=== PATIENT | female | born 1965 | race Caucasian/White ===

== ENCOUNTER 2016-10-25 07:52 | Day surgery (SDC) | payer BC ==
[2016-10-23 11:50] VITALS: BMI 46.7
[2016-10-25 08:25] VITALS: RESP 16; TEMP 98.1
[2016-10-25] MEDS: LACTATED RINGERS 1,000 ML IV SCH (08:37)
[2016-10-25] MEDS: LIDOCAINE 1% 20 ML VIAL (10MG/ML) FOR IV START INTRADERMA PRN (08:37)
[2016-10-25] MEDS ORDERED: PROPOFOL 10 MG/ML 20 ML VIAL IV ONE (08:44)
[2016-10-25] MEDS ORDERED: LIDOCAINE 1% INJ 10MG/ML (20 ML MDV) ONE (08:44)
--- NOTE | 2016-10-25 09:13 | P.PCN ---
Date of Procedure: 10/25/16 Procedure(s) Performed: Procedure: Colonoscopy and biopsy. Preoperative diagnosis: Change in bowel habits. Postoperative diagnosis: 1. Sigmoid diverticulosis with no evidence of acute diverticulitis or strictures. 2. Diminutive polyp, proximal sigmoid, biopsied but no large polyps or cancer. Preparation: HalfLytely prep. Sedation: Was provided by anesthesia. Brief clinical history: The patient is a 51-year-old female who is referred for this evaluation because of recent change in bowel habits and character of her stools. She is describing her bowel movement to be every other day instead of daily, as it used to be, and are more mushy. No bleeding. She said that she has started recently a dietary supplement. At her age and since she had no prior colonoscopy she was referred for this evaluation. No family history of colon cancer. Procedure: With the patient on her left lateral decubitus position and after informed consent and adequate sedation, the perianal area was inspected and it did not show any fissures or fistulas. There were no masses felt on digital rectal examination. The Olympus CFQ 160L video colonoscope was then inserted in the rectum in the usual fashion and advanced to the cecum. The mucosa appeared healthy. There were multiple diverticular orifices seen scattered in the sigmoid but I saw no evidence of acute diverticulitis or strictures. There was a diminutive polyp in the proximal sigmoid which I biopsied but there were no large polyps or cancer. I retroflexed endoscope in the rectum before the endoscope was withdrawn. The patient tolerated the procedure well. Plan: The patient was reassured. Discussed dietary measures. Further plans can be made based on her course and biopsy results. I anticipate repeating this colonoscopy in 5 years. She will follow-up with you as planned.
[2016-10-25 09:56] VITALS: BP 137/78; PULSE 60
== END 2016-10-25 10:15 | disposition home or self-care (01) ==
LOC: ORWHC2ENDO 07:52
DX: K63.5 Polyp of colon (principal); K57.30 Diverticulosis of large intestine without perforation or abscess without bleeding; I10 Essential (primary) hypertension; E78.5 Hyperlipidemia, unspecified; Z88.0 Allergy status to penicillin; Z88.1 Allergy status to other antibiotic agents; Z79.82 Long term (current) use of aspirin; Z79.899 Other long term (current) drug therapy; Z87.891 Personal history of nicotine dependence
CPT/HCPCS: 81025; 88305; 45380; J2001; J2704; 99153

== ENCOUNTER → 2016-11-09 | Outpatient (CLI) | payer BC ==
--- NOTE | 2016-11-09 14:19 | MM ---
Reason for exam: screening (asymptomatic). Last mammogram was performed 2 years and 7 months ago. History: Family history of breast cancer in paternal grandmother. Physical Findings: A clinical breast exam by your physician is recommended on an annual basis and results should be correlated with mammographic findings. MG Screening Mammo w CAD Bilateral CC and MLO view(s) were taken. Prior study comparison: April 14, 2014, left breast MG work up mamm w CAD LT. April 12, 2014, bilateral MG screening mammo w CAD. The breast tissue is heterogeneously dense. This may lower the sensitivity of mammography. There is no discrete abnormality. ASSESSMENT: Negative, BI-RAD 1 RECOMMENDATION: Routine screening mammogram of both breasts in 1 year.
== END | disposition home or self-care (01) ==
LOC: RADMAMWWP 10:11
PROVIDERS: ATTEND Internal Medicine Geriatric Medicine
DX: Z12.31 Encounter for screening mammogram for malignant neoplasm of breast (principal)

== ENCOUNTER → 2017-04-01 | Outpatient (CLI) | payer BC ==
[2017-04-01 16:21] LABS: Non-African American GFR(MDRD) >60 (>60 ml/min/1.73 sqM)
== END | disposition home or self-care (01) ==
LOC: LABWHC1 15:51
PROVIDERS: ATTEND Internal Medicine Geriatric Medicine
DX: I10 Essential (primary) hypertension (principal)
CPT/HCPCS: 36415; 82565

== ENCOUNTER → 2017-04-02 | Outpatient (CLI) | payer BC ==
--- NOTE | 2017-04-02 08:32 | MR ---
EXAMINATION TYPE: MR lumbar spine wo/w con DATE OF EXAM: 04/02/2017 8:24 AM COMPARISON: NONE HISTORY: spinal stenosis CONTRAST: The patient was injected with 20 mL intravenous MultiHance gadolinium contrast. Multiplanar, MultiSpin echo imaging of the lumbar spine was performed. T11-12: Identified only on the sagittal data set is a disc herniation at this level which appears to impart mild mass effect upon the conus medullaris and may result in a degree of central stenosis. Thi s is not imaged on the axial data set and therefore dedicated evaluation of the thoracic spine is adv ised. T12-L1: Normal disc appearance without desiccation. No herniation, protrusion or disc bulging. No c anal stenosis is present. Foramina are patent bilaterally. L1-L2: Normal disc appearance without desiccation. No herniation, protrusion or disc bulging. No ca nal stenosis is present. Foramina are patent bilaterally. L2-L3: There is mild disc desiccation. Mild posterior disc bulge with minimal effacement of the ventr al thecal sac. No evidence for disc herniation protrusion or central stenosis. Neural foramina are pa tent bilaterally. L3-L4: There is mild disc desiccation. Mild posterior disc bulge with minimal effacement of the ventr al thecal sac. No evidence for disc herniation protrusion or central stenosis. Neural foramina are pa tent bilaterally. L4-L5: There is mild disc desiccation. Mild posterior disc bulge with minimal effacement of the ventr al thecal sac. No evidence for disc herniation protrusion or central stenosis. Neural foramina are pa tent bilaterally. L5-S1: Moderate disc desiccation is identified. Posterior disc bulge with annular tear. Small disc pr otrusion is difficult to exclude. Mild effacement ventral thecal sac. No evidence for lateral recess stenosis or central stenosis. Neural foramina are patent bilaterally. Lumbar segments are intact. No paraspinal masses are identified. Conus medullaris has a normal appe arance. No evidence for pathologic enhancement. IMPRESSION: 1. Partially imaged disc herniation at T11-T12. Dedicated evaluation of the thoracic spine is recomme nded to exclude central stenosis at this level. 2. Posterior disc bulge and annular tear at L5-S1. Small disc protrusion is difficult to exclude. 3. Multilevel disc bulging is noted.
== END | disposition home or self-care (01) ==
LOC: RADMRIMAIN 07:30
PROVIDERS: ATTEND Internal Medicine Geriatric Medicine
DX: M51.27 Other intervertebral disc displacement, lumbosacral region (principal); M51.37 Other intervertebral disc degeneration, lumbosacral region
CPT/HCPCS: 72158; A9577

== ENCOUNTER → 2017-07-09 | Outpatient (CLI) | payer BC ==
[2017-07-09 16:32] LABS: Anisocytosis Slight; Basophils # (A) 0.1 k/uL (0-0.2); Basophils % (A) 1 %; CH 25.2; CHCM 30.3; Eosinophils # (A) 0.1 k/uL (0-0.7); Eosinophils % (A) 1 %; HCT 38.6 % (34.0-46.0); HDW 2.79; Hypochromasia Moderate; Luc % (Auto) 2; Lymphocytes # (A) 1.7 k/uL (1.0-4.8); Lymphocytes % (A) 21 %; MCH 25.8 pg (25.0-35.0); MCV 83.1 fL (80.0-100.0); Mean Platelet Volume 6.1; Monocytes # (A) 0.4 k/uL (0-1.0); Monocytes % (A) 5 %; Neutrophils % (A) 70 %; RBC 4.65 m/uL (3.80-5.40); RDW 17.7 % (11.5-15.5); WBC 8.5 k/uL (3.8-10.6); WBC (Perox) 9.01
[2017-07-09 16:42] LABS: Anion Gap 9 mmol/L; Blood Urea Nitrogen 26 mg/dL (7-17); Calcium 9.6 mg/dL (8.4-10.2); Carbon Dioxide 27 mmol/L (22-30); Chloride 101 mmol/L (98-107); Creatine Kinase 484 U/L (30-135); Glucose 106 mg/dL (74-99); Iron 54 ug/dL (37-170); Non-African American GFR(MDRD) >60 (>60 ml/min/1.73 sqM); Potassium 4.6 mmol/L (3.5-5.1); Sodium 137 mmol/L (137-145)
[2017-07-09 17:29] LABS: Erythrocyte Sedimentation Rate 28 mm/hr (0-20)
[2017-07-09 17:31] LABS: Vitamin B12 904 pg/mL (239-931)
[2017-07-10 02:42] LABS: Treponemal Ab Non-Reactive (Non-Reactive)
[2017-07-10 04:49] LABS: ANA w/Reflex to Titer POSITIVE (NEGATIVE)
[2017-07-12 12:08] LABS: Lyme IgG/IgM 0.4 Index; Lyme IgG/IgM Interp NEGATIVE (NEGATIVE)
[2017-07-16 12:21] LABS: Mercury Whole Blood < 2 mcg/L (< 11)
== END | disposition home or self-care (01) ==
LOC: LABWHC1 15:58
PROVIDERS: ATTEND Psychiatry & Neurology Neurology
DX: D64.9 Anemia, unspecified (principal); G62.9 Polyneuropathy, unspecified; M21.379 Foot drop, unspecified foot
CPT/HCPCS: 36415; 80048; 82306; 82550; 82570; 82607; 82747; 83540; 83655; 83825; 84165; 84207; 85025; 85652; 86038; 86039; 86225; 86618; 86780

== ENCOUNTER → 2017-07-25 | Outpatient (CLI) | payer BC ==
--- NOTE | 2017-07-25 18:58 | MR ---
EXAMINATION TYPE: MR brain wo/w con DATE OF EXAM: 07/25/2017 COMPARISON: NONE HISTORY: Leg weakness, facial numbness TECHNIQUE: Multiplanar, multisequence images of the brain and brainstem is performed without and with IV contras t, utilizing 13 mL intravenous Gadavist . FINDINGS: Diffusion weighted images demonstrate no evidence of a recent infarct or other diffusion ab normality. There is no extra-axial fluid collection or significant white matter signal abnormality. The ventricular system and cisternal spaces are normal in size and appearance. The brain volume is age appropriate. Major intracranial flow voids are intact with dominance of the left vertebral artery . Cerebellar tonsils are noted to be low-lying. No herniation, ectopia, or Chiari malformation. Midline structures demonstrate normal morphology. The craniocervical junction appears within normal limits. Post contrast images demonstrate no abnormal enhancement. Intracranial portion of the trigem inal nerves appear symmetric and unremarkable. The dural venous sinuses appear patent. The visualized sinuses are clear and the globes are intact. IMPRESSION: Unremarkable MRI of the brain. No white matter change, intracranial mass, mass effect or cerebellopontine angle, abnormal enhancement of the intracranial portion of the trigeminal nerves, or acute infarct.
--- NOTE | 2017-07-25 20:23 | MR ---
EXAMINATION TYPE: MR thoracic spine wo/w con DATE OF EXAM: 07/25/2017 COMPARISON: 04/02/2017 MRI lumbar spine HISTORY: Leg weakness, facial numbness CONTRAST: Standard multiplanar, multisequence MRI departmental protocol utilizing 15 mL intravenous Gadavist ga dolinium contrast. FINDINGS: Thoracic vertebral bodies maintain normal vertebral body height and alignment. Bone marrow signal is within normal limits other than a T2/T1 hyperintense vertebral body hemangioma of T2. There is no abn ormal postcontrast enhancement. The previously described partially visualized disc herniation at T11-T12 on the prior lumbar spine is better characterized and visualized on both sagittal and axial images. This is characterized as a ce ntral disc protrusion/herniation with additional area of left paracentral annular tear. No neural for aminal narrowing is seen. Moderate spinal canal stenosis is a result of the disc herniation and ligam entum flavum buckling. Multilevel disc desiccation is seen from T8 through T11 with broad-based disc bulges at these levels that in combination with ligamentum flavum buckling create minimal spinal canal stenosis. No signific ant neural foraminal narrowing is seen throughout the entirety of the thoracic spine. Thoracic cord i s overall unremarkable in morphology and signal characteristics. IMPRESSION: 1. Central disc herniation at T11-T12 creating moderate spinal canal stenosis and impression upon the thoracic cord in combination with ligamentum flavum buckling. This may account for the patient's low er extremity weakness for 1 year. No neural foraminal narrowing. 2. Multilevel degenerative disc disease from T8 through T11 creating minimal spinal canal stenosis in combination with ligamentum flavum buckling.
== END | disposition home or self-care (01) ==
LOC: RADMRIMAIN 16:38
PROVIDERS: ATTEND Psychiatry & Neurology Neurology
DX: M48.04 Spinal stenosis, thoracic region (principal); M51.24 Other intervertebral disc displacement, thoracic region; M51.34 Other intervertebral disc degeneration, thoracic region; M24.28 Disorder of ligament, vertebrae; G35 Multiple sclerosis
CPT/HCPCS: 70553; 72157; A9581

== ENCOUNTER → 2017-08-23 | Outpatient (CLI) | payer BC ==
--- NOTE | 2017-08-23 19:16 | CT ---
EXAMINATION TYPE: CT thoracic spine wo con DATE OF EXAM: 08/23/2017 COMPARISON: NONE HISTORY: Thoracic spinal stenosis. Pre-op. CT DLP: 1912 mGycm Automated exposure control for dose reduction was used. FINDINGS: The thoracic vertebra have normal alignment. Disc spaces are fairly well-maintained. There is ordinar y hypertrophic mild anterior spurring in the mid and lower thoracic spine. The posterior elements are intact. There is no evidence of thoracic paraspinal mass. I see no focal bone destruction. There is no sign of thoracic spinal stenosis. At T9-10 on the right side there is some spur formation posterio rly of the endplates and encroaching on the spinal canal. There is probably a small disc herniation a s well at this location. IMPRESSION: MILD MULTILEVEL SPONDYLOSIS. NO FRACTURE. SMALL POSTERIOR CALCIFIED DISC HERNIATION AT T9-10 ON THE R IGHT SIDE.
== END | disposition home or self-care (01) ==
LOC: RADCTMAIN 18:40
PROVIDERS: ATTEND Orthopaedic Surgery
DX: M51.04 Intervertebral disc disorders with myelopathy, thoracic region (principal); M47.14 Other spondylosis with myelopathy, thoracic region
CPT/HCPCS: 72128

== ENCOUNTER → 2018-02-12 | Outpatient (CLI) | payer BC | END | disposition home or self-care (01) | LOC: RADMRIMAIN 19:32 | PROVIDERS: ATTEND Orthopaedic Surgery | DX: Z53.9 Procedure and treatment not carried out, unspecified reason (principal) ==

== ENCOUNTER → 2018-02-20 | Outpatient (CLI) | payer BC ==
--- NOTE | 2018-02-21 09:55 | MM ---
Reason for exam: screening (asymptomatic). Last mammogram was performed 1 year and 3 months ago. History: Family history of breast cancer in paternal grandmother. Physical Findings: A clinical breast exam by your physician is recommended on an annual basis and results should be correlated with mammographic findings. MG Screening Mammo w CAD Bilateral CC and MLO view(s) were taken. Prior study comparison: November 09, 2016, bilateral MG screening mammo w CAD. April 14, 2014, left breast MG work up mamm w CAD LT. There are scattered fibroglandular densities. No significant changes when compared with prior studies. ASSESSMENT: Benign, BI-RAD 2 RECOMMENDATION: Routine screening mammogram of both breasts in 1 year.
== END | disposition home or self-care (01) ==
LOC: RADMAMWWP 13:49
PROVIDERS: ATTEND Internal Medicine Geriatric Medicine
DX: Z12.31 Encounter for screening mammogram for malignant neoplasm of breast (principal)
CPT/HCPCS: 77067

== ENCOUNTER 2018-04-26 03:37 | Emergency (ER) | payer BC ==
[2018-04-26 03:45] VITALS: TEMP 98.8
[2018-04-26 04:17] LABS: Appearance,Urine Turbid (Clear); Bilirubin,Urine Negative (Negative); Blood,Urine Large (Negative); Color,Urine Dark Red; Glucose,Urine (UA) Negative (Negative); Ketones,Urine Trace (Negative); Leukocyte Esterase,Urine Large (Negative); Mucus,Urine Moderate /hpf; Nitrite,Urine Negative (Negative); PH, Urine 5.5 (5.0-8.0); Protein,Urine 2+ (Negative); RBC,Urine >182 /hpf (0-5); Squamous Epithelial Cell,Urine 6 /hpf (0-4); Urobilinogen,Urine <2.0 mg/dL (<2.0); WBC,Urine >182 /hpf (0-5)
[2018-04-26 04:21] LABS: Specific Gravity,Urine 1.025 (1.001-1.035)
[2018-04-26] MEDS ORDERED: CIPROFLOXACIN HCL 500 MG TAB PO STA (04:45)
--- NOTE | 2018-04-26 05:13 | ED ---
Female Urogenital HPI - General Chief complaint: Urogenital Stated complaint: blood in urine Time Seen by Provider: 04/26/18 03:47 Source: patient Mode of arrival: ambulatory Limitations: no limitations - History of Present Illness Initial comments: 52 years old female presents with a frequency urgency dysuria she seen some blood in her urine tonight she was feeling fine about 4 hours prior to arrival to the ER she went to the bathroom couple times and she noticed there was some blood in the urine she denies any abdominal pain has mild discomfort in the right flank area no fever no chills no nausea no vomiting. She had a back surgery she said at the level of T11 and T12 no complications from there wound has healed nicely no fall no trauma no back pain. Last Menstrual Period: 04/05/18 - Related Data Home Medications Medication Instructions Recorded Confirmed Aspirin [Adult Low Dose Aspirin EC] 81 mg PO DAILY 10/23/16 04/26/18 Atorvastatin [Lipitor] 20 mg PO DAILY 10/23/16 04/26/18 Biotin 5 mg PO DAILY 10/23/16 04/26/18 Cholecalciferol [Vitamin D3] 8,000 unit PO DAILY 10/23/16 04/26/18 FLUoxetine HCL [PROzac] 2 tab PO DAILY 10/23/16 04/26/18 Phentermine HCl 37.5 mg PO DAILY 10/23/16 04/26/18 Propranolol [Inderal] 10 mg PO BID 10/23/16 04/26/18 Thrive Nutritional Supplement 1 tab PO DAILY 10/23/16 04/26/18 Ubidecarenone [Co Q-10] 30 mg PO DAILY 10/23/16 04/26/18 Previous Rx's Medication Instructions Recorded Ciprofloxacin HCl [Cipro] 500 mg PO Q12HR #14 tablet 04/26/18 Allergies Allergy/AdvReac Type Severity Reaction Status Date / Time Penicillins Allergy Rash/Hives Verified 04/26/18 03:45 tetracycline Allergy pseudo-brain Verified 04/26/18 03:45 tumor Review of Systems ROS Statement: Those systems with pertinent positive or pertinent negative responses have been documented in the HPI. ROS Other: All systems not noted in ROS Statement are negative. Past Medical History Past Medical History: No Reported History, Hypertension Additional Past Medical History / Comment(s): varicose veins bilateral legs, recent falls - weakness in legs History of Any Multi-Drug Resistant Organisms: None Reported Past Surgical History: Back Surgery, Tubal Ligation Past Anesthesia/Blood Transfusion Reactions: Previous Problems w/ Anesthesia Additional Past Anesthesia/Blood Transfusion Reaction / Comment(s): difficulting coming out of anesthesia Past Psychological History: Depression Smoking Status: Former smoker Past Alcohol Use History: None Reported Past Drug Use History: None Reported General Exam - General Exam Comments Initial Comments: General: The patient is awake and alert, in no distress, and does not appear acutely ill. Skin: Skin is warm and dry and no rashes or lesions are noted. Eye: Pupils are equal, round and reactive to light, extra-ocular movements are intact; there is normal conjunctiva bilaterally. Ears, nose, mouth and throat: There are moist mucous membranes and no oral lesions. Neck: The neck is supple, there is no tenderness or JVD. Cardiovascular: There is a regular rate and rhythm. No murmur, rub or gallop is appreciated. Respiratory: To auscultation bilateral, no wheezing no rhonchi no distress respiratory tran noticed Gastrointestinal: Soft, non-distended, non-tender abdomen without masses or organomegaly noted. There is no rebound or guarding present. Bowel sounds are unremarkable. Back: There is no tenderness to palpation in the midline. There is no obvious deformity. Musculoskeletal: Normal ROM, no tenderness, There is no pedal edema. There is no calf tenderness or swelling. No cords were appreciated. Neurological: CN II-XII intact, Cranial nerves III through XII are intact. There are no obvious motor or sensory deficits. Coordination appears grossly intact. Speech is normal. Psychiatric: Cooperative, appropriate mood & affect, normal judgment. Limitations: no limitations Course Vital Signs 04/26/18 03:39 Temperature 98.8 F Pulse Rate 91 Respiratory 20 Rate Blood Pressure 150/86 O2 Sat by Pulse 97 Oximetry Urinalysis revealed UTI, patient was given Cipro 500 mg by mouth now she begun on Cipro 500 mg twice daily for next 7 days she will follow-up with her family doctor, urine is sent for culture Medical Decision Making - Lab Data Lab Results 04/26/18 Range/Units 03:45 Urine Color Dark Red Urine Appearance Turbid H (Clear) Urine pH 5.5 (5.0-8.0) Ur Specific [place] 1.025 (1.001-1.035) Urine Protein 2+ H (Negative) Urine Glucose (UA) Negative (Negative) Urine Ketones Trace H (Negative) Urine Blood Large H (Negative) Urine Nitrite Negative (Negative) Urine Bilirubin Negative (Negative) Urine Urobilinogen <2.0 (<2.0) mg/dL Ur Leukocyte Esterase Large H (Negative) Urine RBC >182 H (0-5) /hpf Urine WBC >182 H (0-5) /hpf Ur Squamous Epith Cells 6 H (0-4) /hpf Urine Mucus Moderate H (None) /hpf Disposition Clinical Impression: UTI (urinary tract infection) Disposition: HOME SELF-CARE Condition: Good Instructions: Urinary Tract Infection in Women (ED) Prescriptions: Ciprofloxacin HCl [Cipro] 500 mg PO Q12HR #14 tablet Is patient prescribed a controlled substance at d/c from ED?: No Referrals: Moises Mattson MD [Primary Care Provider] - 1-2 days
[2018-04-26 05:37] VITALS: BP 160/72; PULSE 82; RESP 18
== END 2018-04-26 05:36 | disposition home or self-care (01) ==
LOC: EC 03:37
DX: N39.0 Urinary tract infection, site not specified (principal); I10 Essential (primary) hypertension; F32.9 Major depressive disorder, single episode, unspecified; Z98.51 Tubal ligation status; Z87.891 Personal history of nicotine dependence; Z79.82 Long term (current) use of aspirin; Z79.899 Other long term (current) drug therapy; Z88.0 Allergy status to penicillin; Z88.1 Allergy status to other antibiotic agents
CPT/HCPCS: 81001; 87077; 87086; 87186; 99283

== ENCOUNTER → 2019-03-04 | Outpatient (CLI) | payer BC ==
--- NOTE | 2019-03-05 10:46 | MM ---
Reason for exam: screening (asymptomatic). Last mammogram was performed 1 year ago. History: Family history of breast cancer in paternal grandmother. Physical Findings: A clinical breast exam by your physician is recommended on an annual basis and results should be correlated with mammographic findings. MG Screening Mammo w CAD Bilateral CC and MLO view(s) were taken. XCCL view(s) were taken of the right breast. Prior study comparison: February 20, 2018, bilateral MG screening mammo w CAD. November 09, 2016, bilateral MG screening mammo w CAD. The breast tissue is heterogeneously dense. This may lower the sensitivity of mammography. No suspicious abnormality. No significant changes when compared with prior studies. ASSESSMENT: Negative, BI-RAD 1 RECOMMENDATION: Routine screening mammogram of both breasts in 1 year.
== END | disposition home or self-care (01) ==
LOC: RADMAMWWP 10:54
PROVIDERS: ATTEND Internal Medicine Geriatric Medicine
DX: Z12.31 Encounter for screening mammogram for malignant neoplasm of breast (principal)
CPT/HCPCS: 77067

== ENCOUNTER → 2020-04-14 | Outpatient (CLI) | payer BC ==
--- NOTE | 2020-04-15 09:08 | MM ---
Reason for exam: screening (asymptomatic). Last mammogram was performed 1 year and 1 month ago. History: Family history of breast cancer in paternal grandmother. Physical Findings: A clinical breast exam by your physician is recommended on an annual basis and results should be correlated with mammographic findings. MG 3D Screening Mammo W/Cad Bilateral CC and MLO view(s) were taken. Prior study comparison: March 04, 2019, bilateral MG screening mammo w CAD. February 20, 2018, bilateral MG screening mammo w CAD. The breast tissue is heterogeneously dense. This may lower the sensitivity of mammography. There is no discrete abnormality. No significant changes when compared with prior studies. ASSESSMENT: Negative, BI-RAD 1 RECOMMENDATION: Routine screening mammogram of both breasts in 1 year.
== END | disposition home or self-care (01) ==
LOC: RADMAMWWP 11:22
PROVIDERS: ATTEND Internal Medicine Geriatric Medicine
DX: Z12.31 Encounter for screening mammogram for malignant neoplasm of breast (principal)
CPT/HCPCS: 77063; 77067

== ENCOUNTER → 2021-06-08 | Outpatient (CLI) | payer BC ==
--- NOTE | 2021-06-09 13:16 | MM ---
Reason for exam: screening (asymptomatic). Last mammogram was performed 1 year and 2 months ago. History: Family history of breast cancer in paternal grandmother. Physical Findings: A clinical breast exam by your physician is recommended on an annual basis and results should be correlated with mammographic findings. MG 3D Screening Mammo W/Cad Bilateral CC and MLO view(s) were taken. Prior study comparison: April 14, 2020, bilateral MG 3d screening mammo w/cad. March 04, 2019, bilateral MG screening mammo w CAD. The breast tissue is heterogeneously dense. This may lower the sensitivity of mammography. There is no discrete abnormality. No significant changes when compared with prior studies. ASSESSMENT: Negative, BI-RAD 1 RECOMMENDATION: Routine screening mammogram of both breasts in 1 year.
== END | disposition home or self-care (01) ==
LOC: RADMAMWWP 10:55
PROVIDERS: ATTEND Internal Medicine Geriatric Medicine
DX: Z12.31 Encounter for screening mammogram for malignant neoplasm of breast (principal); Z80.3 Family history of malignant neoplasm of breast
CPT/HCPCS: 77063; 77067

== ENCOUNTER → 2022-08-10 | Outpatient (CLI) | payer BC ==
--- NOTE | 2022-08-13 09:02 | MM ---
Reason for Exam: Screening (asymptomatic). Last mammogram was performed 1 year(s) and 2 month(s) ago. Patient History: Menarche at age 14. First Full-Term at age 27. Postmenopausal. Paternal grandmother had breast cancer. Risk Values: Magaly 5 year model risk: 1.3%. NCI Lifetime model risk: 9.1%. Prior Study Comparison: 03/04/2019 Bilateral Screening Mammogram, [facility]. 04/14/2020 Bilateral Screening Mammogram, [facility]. 06/08/2021 Bilateral Screening Mammogram, [facility]. Tissue Density: The breast tissue is heterogeneously dense. This may lower the sensitivity of mammography. Findings: Analyzed By CAD. There is no suspicious group of microcalcifications or new suspicious mass in either breast. No significant change from prior exams. Overall Assessment: Negative, BI-RAD 1 Management: Screening Mammogram of both breasts in 1 year. A clinical breast exam by your physician is recommended on an annual basis and results should be correlated with mammographic findings. Electronically signed and approved by: Derrick Romero D.O.
== END | disposition home or self-care (01) ==
LOC: RADMAMWWP 09:57
PROVIDERS: ATTEND Internal Medicine Geriatric Medicine
DX: Z12.31 Encounter for screening mammogram for malignant neoplasm of breast (principal); Z78.0 Asymptomatic menopausal state; Z80.3 Family history of malignant neoplasm of breast
CPT/HCPCS: 77063; 77067

== ENCOUNTER → 2023-09-03 | Outpatient (CLI) | payer BC ==
--- NOTE | 2023-09-04 07:25 | CT ---
EXAMINATION TYPE: CT thoracic spine wo con DATE OF EXAM: 09/03/2023 COMPARISON: None HISTORY: chronic back pain x many years CT DLP: 1424 mGycm Automated exposure control for dose reduction was used. Contrast: None Technique: Axial images 3 mm thick sections. Reconstructed images in the coronal and sagittal planes. FINDINGS: Pedicle screws are present in the region of T11 and T12. No suspicious spinal canal stenosis or significant foraminal stenosis is evident. No acute fractures are evident. The alignment is preserved. Spondylosis is present within the lower cervical and lower t horacic spine. Disc heights appear preserved. Vertebral body heights are preserved. IMPRESSION: 1. NO SUSPICIOUS ACUTE ABNORMALITY THORACIC SPINE
== END | disposition home or self-care (01) ==
LOC: RADCTMAIN 16:27
PROVIDERS: ATTEND Orthopaedic Surgery
DX: Z98.1 Arthrodesis status (principal); M54.9 Dorsalgia, unspecified
CPT/HCPCS: 72128

== ENCOUNTER → 2023-09-03 | Outpatient (CLI) | payer BC ==
--- NOTE | 2023-09-04 14:37 | MR ---
EXAMINATION TYPE: MR cspine/tspine wo con DATE OF EXAM: 09/03/2023 9:18 PM CLINICAL INDICATION:Female, 57 years old with history of R29.2; PHH, Neck and mid back pain, Weaker l egs more on the right, numbness in fingers, Hx of t-spine surgery 6 yrs ago, Has foot drop in both fe et, frequent falls COMPARISON: 08/26/2023, 08/23/2017 TECHNIQUE: Multi planar, multi sequence imaging was performed utilizing: T1-weighted, T2-weighted, a nd turbo inversion recovery imaging of the cervical and thoracic spine. MR contrast: IV Contrast: , None. FINDINGS: CERVICAL: Alignment: The cervical vertebral bodies have preserved heights. Alignment is within normal limits gi warren patient positioning. Bones: Multilevel disc space narrowing and osteophyte formation with facet and uncovertebral joint ar thropathy. Cord: The spinal cord is unremarkable with regards to their signal intensity and morphology. Discs: Multilevel disc desiccation is present. C2-C3: No significant disc pathology. The spinal canal is patent. No neural foraminal stenosis. C3-C4: A disc osteophyte complex is present which minimally narrows the ventral subarachnoid space. Bilateral facet and uncovertebral joint arthropathy are present with mild bilateral neural foraminal stenosis. C4-C5: No significant disc pathology. The spinal canal is patent. Bilateral facet and uncovertebral joint arthropathy are present with mild to moderate right and mild left neural foraminal stenosis. C5-C6: No significant disc pathology. The spinal canal is patent. Bilateral facet and uncovertebral joint arthropathy are present with mild bilateral neural foraminal stenosis. C6-C7: No significant disc pathology. The spinal canal is patent. No neural foraminal stenosis. C7-T1: No significant disc pathology. The spinal canal is patent. No neural foraminal stenosis. THORACIC: No evidence significant spinal canal or neural foraminal stenosis. Spinal cord is within no rmal limits. T2 vertebral body height T1/high T2 signal probable atypical hemangioma. Postsurgical ch anges at T11-T12. Hardware limits evaluation at these levels. The spinal canal neural foramen are pat ent. Other: None. IMPRESSION: 1. Postsurgical changes to T11 and T12 without evidence for significant spinal canal or neural caroline inal stenosis throughout the cervical or thoracic spine. 2. No definitive evidence of disc herniation. 3. Mild disc degeneration with associated osteoarthritic changes.
== END | disposition home or self-care (01) ==
LOC: RADMRIMAIN 21:00
PROVIDERS: ATTEND Orthopaedic Surgery
DX: M47.814 Spondylosis without myelopathy or radiculopathy, thoracic region (principal); M51.34 Other intervertebral disc degeneration, thoracic region; Z98.890 Other specified postprocedural states; R29.2 Abnormal reflex; Z98.1 Arthrodesis status
CPT/HCPCS: 72141; 72146

== ENCOUNTER → 2023-09-25 | Outpatient (CLI) | payer BC ==
--- NOTE | 2023-09-26 21:46 | BD ---
EXAMINATION TYPE: Axial Bone Density DATE OF EXAM: 09/25/2023 CLINICAL HISTORY: 58 years old Female. ICD-10 CODE: M81.0 AGE-RELATED OSTEOPOROSI Height: 5 ft 5 in Weight: 256 FRAX RISK QUESTIONS: Alcohol (3 or more units per day): no Family History (Parent hip fracture): no Glucocorticoids (More than 3mos): no (Ex: prednisone, prednisolone, methylprednisolone, dexamethasone, and hydrocortisone). History of Fracture in Adulthood: no Secondary Osteoporosis: 1. Type 1 Diabetes: no 2. Hyperthyroidism: no 3. Menopause before 45: no 4. Malnutrition: no 5. Chronic liver disease: no Rheumatoid Arthritis: no Current Tobacco Use: no RISK FACTORS HISTORY OF: Surgery to Spine/Hip(right/left)/Wrist (right/left): t spine When: 2017 Family History of Osteoporosis: no Active: to her ability Diet low in dairy products/other sources of calcium: no Postmenopausal woman: yes Take estrogen and/or progesterone medications: no Lost more than 2 inches in height since high school: no Frequent falls: uses walker unsteady from nerve damage Poor Health: good Hyperparathyroidism: no Adrenal Insufficiency: no MEDICATIONS: Additional Medications: depression meds, Janumet, Rosuvastatin, blood pressure meds, lisinopril, Adip ex, Additional History: EXAM MEASUREMENTS: Bone mineral densitometry was performed using the [employer] System. Bone mineral density as measured about the Lumbar spine is: ----- L1-L4(G/cm2): 1.448 T Score Values are as follows: ----- L1: 1.3 ----- L2: 2.0 ----- L3: 2.1 ----- L4: 3.1 ----- L1-L4: 2.2 Z Score Values are as follows: ----- L1: 1.1 ----- L2: 1.8 ----- L3: 1.9 ----- L4: 2.9 ----- L1-L4: 2.0 baseline Bone mineral density about the R hip (g/cm2): 1.349 Bone mineral density about the L hip (g/cm2): 1.276 T Score values are as follows: -----R Neck: 2.2 -----L Neck: 1.7 -----R Total: 2.7 -----L Total: 2.9 Z Score values are as follows: -----R Neck: 2.6 -----L Neck: 2.1 -----R Total: 2.7 -----L Total: 2.8 baseline FRAX%s: The graph provided illustrates a 4.0chance for a major osteoporotic fx and a 0.0chance for th e hips probability for fx in 10 years time. IMPRESSION: Normal (Values between +1 and -1 indicate normal bone mass). Consider repeating this study in 5 year s or sooner if there is some new clinical indication. NOTE: T-SCORE=SD OF THE YOUNG ADULT MEAN.
--- NOTE | 2023-10-01 19:10 | MM ---
Reason for Exam: Screening (asymptomatic). Last mammogram was performed 1 year(s) and 1 month(s) ago. Patient History: Menarche at age 14. First Full-Term at age 27. Postmenopausal. Paternal grandmother had breast cancer. Risk Values: Magaly 5 year model risk: 1.4%. NCI Lifetime model risk: 8.7%. Prior Study Comparison: 04/14/2020 Bilateral Screening Mammogram, [facility]. 06/08/2021 Bilateral Screening Mammogram, [facility]. 08/10/2022 Bilateral MG 3D screening mammo w/cad, [facility]. Tissue Density: There are scattered fibroglandular densities. Findings: Analyzed By CAD. Unchanged subareolar asymmetric density on the left. There is no suspicious group of microcalcifications or new suspicious mass in either breast. Overall Assessment: Benign, BI-RAD 2 Management: Screening Mammogram of both breasts in 1 year. . Patient should continue monthly self-breast exams. A clinical breast exam by your physician is recommended on an annual basis. This exam should not preclude additional follow-up of suspicious palpable abnormalities. Note on Magaly scores and lifetime risk: 1. A Magaly score greater than 3% is considered moderate risk. If this is the case, consider specialist referral to assess eligibility for a risk reducing agent. 2. If overall lifetime risk for the development of breast cancer is 20% or higher, the patient may qualify for future screening with alternating mammogram and breast MRI. Electronically signed and approved by: Rosita Clancy M.D. Radiologist
== END | disposition home or self-care (01) ==
LOC: RADBDWWP 14:21
PROVIDERS: ATTEND Internal Medicine Geriatric Medicine
DX: Z12.31 Encounter for screening mammogram for malignant neoplasm of breast (principal); M81.0 Age-related osteoporosis without current pathological fracture
CPT/HCPCS: 77063; 77067; 77080

== ENCOUNTER 2024-10-04 10:00 | Emergency (ER) | payer BC ==
[2024-10-04 10:04] VITALS: TEMP 98.4
--- NOTE | 2024-10-04 10:12 | ED ---
General Adult HPI - General Source: patient, RN notes reviewed Mode of arrival: ambulatory Limitations: no limitations <Tamela Herring - Last Filed: 10/04/24 10:12> - General Source: patient, RN notes reviewed, old records reviewed <Dano Kohli - Last Filed: 10/04/24 14:57> - General Chief complaint: Recheck/Abnormal Lab/Rx Stated complaint: Blue eye issue Time Seen by Provider: 10/04/24 10:12 - History of Present Illness Initial comments: Quick note: 59-year-old female presents to the emergency department for evaluation of bilateral eye redness and eyelid swelling. Patient states has been ongoing for around 5 days. She went to urgent care today was sent into the emergency department for further evaluation. She denies fever, chills. Admits to blurry vision. Also admits to eye irritation. (Tamela Herring) Patient is a 59-year-old female presents emergency department after being sent from urgent care for evaluation for orbital versus periorbital cellulitis. Patient has been dealing with eye discharge, scratchy irritation feeling as well as periorbital swelling for multiple days. States it all started with URI symptoms that started on [address]. No fevers or chills. Has not been receiving treatment. Sent here for evaluation for for possible periorbital versus orbital cellulitis. Does have a history of diabetes, hypertension, hyperlipidemia as well as spine surgeries. States it is not painful but more irritating with the swelling. Does have sensitivity to light. Has noticed greenish-yellow mucus drainage from bilateral eyes. Presents for further evaluation at this time. Originally seen as a quick note. I evaluated patient when she was placed in a hallway bed. (Dano Kohli) - Related Data Home Medications Medication Instructions Recorded Confirmed Aspirin [Adult Low Dose Aspirin EC] 81 mg PO DAILY 10/23/16 04/26/18 Atorvastatin [Lipitor] 20 mg PO DAILY 10/23/16 04/26/18 Biotin 5 mg PO DAILY 10/23/16 04/26/18 Cholecalciferol [Vitamin D3] 8,000 unit PO DAILY 10/23/16 04/26/18 FLUoxetine HCL [PROzac] 2 tab PO DAILY 10/23/16 04/26/18 Phentermine HCl 37.5 mg PO DAILY 10/23/16 04/26/18 Propranolol [Inderal] 10 mg PO BID 10/23/16 04/26/18 Thrive Nutritional Supplement 1 tab PO DAILY 10/23/16 04/26/18 Ubidecarenone [Co Q-10] 30 mg PO DAILY 10/23/16 04/26/18 Previous Rx's Medication Instructions Recorded Ciprofloxacin HCl [Cipro] 500 mg PO Q12HR #14 tablet 04/26/18 Cefdinir 300 mg PO Q12HR 7 Days #14 cap 10/04/24 Ofloxacin 0.3% Ophth Soln [Ocuflox 1 - 2 drops BOTH EYES QID 10 Days 10/04/24 Ophth Soln] #10 ml Sulfamethox-Tmp 800-160Mg [Bactrim 1 tab PO Q12HR 7 Days #14 tab 10/04/24 DS 800-160 mg] Allergies Allergy/AdvReac Type Severity Reaction Status Date / Time Penicillins Allergy Rash/Hives Verified 10/04/24 10:04 tetracycline Allergy pseudo-brain Verified 10/04/24 10:04 tumor Review of Systems ROS Other: All systems not noted in ROS Statement are negative. <Tamela Herring - Last Filed: 10/04/24 10:12> ROS Other: All systems not noted in ROS Statement are negative. <Dano Kohli - Last Filed: 10/04/24 14:57> ROS Statement: Those systems with pertinent positive or pertinent negative responses have been documented in the HPI. Review of Systems: CONST: Denies fever EYES: Endorses eye irritation, drainage. ENT: Denies nasal congestion C/V: Denies Chest pain RESP: Denies shortness of breath GI: Denies abdominal pain : Denies dysuria SKIN: Denies rash. MSK: Denies joint pain. NEURO: Denies headache (Dano Kohli) Past Medical History Past Medical History: No Reported History, Diabetes Mellitus, Hyperlipidemia, Hypertension Additional Past Medical History / Comment(s): varicose veins bilateral legs, recent falls - weakness in legs History of Any Multi-Drug Resistant Organisms: None Reported Past Surgical History: Back Surgery, Tubal Ligation Past Anesthesia/Blood Transfusion Reactions: Previous Problems w/ Anesthesia Additional Past Anesthesia/Blood Transfusion Reaction / Comment(s): difficulting coming out of anesthesia Past Psychological History: Depression Smoking Status: Never smoker Past Alcohol Use History: None Reported Past Drug Use History: None Reported <Tamela Herring - Last Filed: 10/04/24 10:12> General Exam Limitations: no limitations <Tamela Herring - Last Filed: 10/04/24 10:12> <Dano Kohli - Last Filed: 10/04/24 14:57> - General Exam Comments Initial Comments: General: Appears in no acute distress. HEAD: Normal with no signs of head trauma. EYES: EOMI. Pupils are 3 mm and equal bilaterally and equal and reactive to light. Conjunctiva is injected bilaterally with purulent discharge from bilateral eyes. Patient has blepharitis of bilateral eyes. Some surrounding mild edema as well. ENT: Hearing grossly intact, normal oropharynx. Posterior oropharynx within normal limits. Uvula is midline. No intraoral edema. RESPIRATORY: Clear breath sounds bilaterally. No wheezes, rales, or rhonchi. C/V: Regular rate and rhythm. S1 and S2 auscultated, no edema, peripheral pulses 2+ and intact throughout ABD: Abd is soft, nontender, nondistended EXT: No obvious deformity. SKIN: No rashes or lesions observed on exposed skin. NEURO: Alert and oriented x 4. (Dano Kohli) Course Vital Signs 10/04/24 10:01 Temperature 98.4 F Pulse Rate 84 Respiratory 20 Rate Blood Pressure 145/84 O2 Sat by Pulse 97 Oximetry Medical Decision Making - Lab Data Result diagrams: 10/04/24 10:44 10/04/24 10:44 <Dano Kohli - Last Filed: 10/04/24 14:57> - Medical Decision Making Was pt. sent in by a medical professional or institution (, PA, METAL FORGER'S ASSISTANT, urgent care, hospital, or senior living...) When possible be specific @ -Sent from urgent care for evaluation of periorbital versus orbital cellulitis Did you speak to anyone other than the patient for history (EMS, parent, family, police, friend...)? What history was obtained from this source @ -No Did you review nursing and triage notes (agree or disagree)? Why? @ -I reviewed and agree with nursing and triage notes Were old charts reviewed (outside hosp., previous admission, EMS record, old EKG, old radiological studies, urgent care reports/EKG's, senior living records)? Report findings @ -No old charts were reviewed Differential Diagnosis (chest pain, altered mental status, abdominal pain women, abdominal pain men, vaginal bleeding, weakness, fever, dyspnea, syncope, headache, dizziness, GI bleed, back pain, seizure, CVA, palpatations, mental health, musculoskeletal)? @ -Orbital cellulitis, periorbital cellulitis, viral infection, bacterial conjunctivitis. This list is not all inclusive. EKG interpreted by me (3pts min.). @ -None done X-rays interpreted by me (1pt min.). @ -None done CT interpreted by me (1pt min.). @ -CT of the orbits revealed preseptal cellulitis but no evidence of orbital cellulitis. U/S interpreted by me (1pt. min.). @ -None done What testing was considered but not performed or refused? (CT, X-rays, U/S, labs)? Why? @ -None What meds were considered but not given or refused? Why? @ -None Did you discuss the management of the patient with other professionals (professionals i.e. , PA, METAL FORGER'S ASSISTANT, lab, RT, psych nurse, social and political studies professor, furnace converter, teacher, youth corrections officer, cyanide case hardener)? Give summary @ -No Was smoking cessation discussed for >3mins.? @ -No Was critical care preformed (if so, how long)? @ -No Were there social determinants of health that impacted care today? How? (Homelessness, low income, unemployed, alcoholism, drug addiction, transporta tion, low edu. Level, literacy, decrease access to med. care, long-term, rehab)? @ -No Was there de-escalation of care discussed even if they declined (Discuss DNR or withdrawal of care, Hospice)? DNR status @ -No What co-morbidities impacted this encounter? (DM, HTN, Smoking, COPD, CAD, Cancer, CVA, ARF, Chemo, Hep., AIDS, mental health diagnosis, sleep apnea, morbid obesity)? @ -None Was patient admitted / discharged? Hospital course, mention meds given and route, prescriptions, significant lab abnormalities, going to OR and other pertinent info. @ -Based on the patient's presentation and physical exam, presents emergency department with concerns for periorbital versus orbital cellulitis. Patient is a diabetic. We will obtain basic infectious labs as well as a CT to evaluate for the potential cellulitis of the orbits. Patient was in agreement this plan. We also perform eye staining with fluorescein. She is given a dose of IV fluids, Decadron, Toradol. Patient was in agreement this plan. Vitals are currently within acceptable limits. Laboratory studies within acceptable limits. Lactic acid normal. No leukocytosis.Patient's fluorescein staining did reveal a corneal abrasion at the 3 o'clock position of the left eye. Right eye reveals no corneal abrasion. Visual acuity is unaffected. Normal for the patient without glasses. Patient's laboratory studies returned unremarkable. All within acceptable limits. Patient CT imaging revealed. Preseptal cellulitis. No evidence of orbital cellulitis. I discussed results with the patient. She will be covered with oral antibiotics as well as antibiotic eyedrops. She was in agreement this plan. Instructed to follow-up with ophthalmology or automatic dispenser mechanic within the next 1 to 3 days. If this is difficult, she can follow-up with your PCP. Instructed return to the emergency department if worsening symptoms. She was in agreement this plan. Strict return precautions discussed. Given doses of her antibiotics prior to discharge. I instructed the patient to follow up with their PCP in the next 1-3 days. I provided contact information for follow up with ophthalmology. I explained that the patient should return to the emergency department if they experience any worsening symptoms. Strict return precautions were discussed with the patient. The patient expressed understanding of these instructions. I answered all questions that the patient had. The patient was discharged home in good condition with their prescriptions and follow up information. Undiagnosed new problem with uncertain prognosis? @ -No Drug Therapy requiring intensive monitoring for toxicity (Heparin, Nitro, Insulin, Cardizem)? @ -No Were any procedures done? @ -No Diagnosis/symptom? @ -Conjunctivitis, periorbital cellulitis, corneal abrasion Acute, or Chronic, or Acute on Chronic? @ -Acute Uncomplicated (without systemic symptoms) or Complicated (systemic symptoms)? @ -Uncomplicated Side effects of treatment? @ -None Exacerbation, Progression, or Severe Exacerbation] @ -No Poses a threat to life or bodily function? @ -Unlikely at this time (Dano Kohli) - Lab Data Lab Results 10/04/24 10/04/24 10/04/24 Range/Units 10:44 10:44 10:44 WBC 9.1 (3.8-10.6) k/uL RBC 4.60 (3.80-5.40) m/uL Hgb 14.1 (11.4-16.0) gm/dL Hct 41.1 (34.0-46.0) % MCV 89.3 (80.0-100.0) fL MCH 30.7 (25.0-35.0) pg MCHC 34.3 (31.0-37.0) g/dL RDW 13.4 (11.5-15.5) % Plt Count 202 (150-450) k/uL MPV 6.4 Neutrophils % 75 % Lymphocytes % 15 % Monocytes % 5 % Eosinophils % 3 % Basophils % 1 % Neutrophils # 6.8 (1.3-7.7) k/uL Lymphocytes # 1.4 (1.0-4.8) k/uL Monocytes # 0.4 (0-1.0) k/uL Eosinophils # 0.3 (0-0.7) k/uL Basophils # 0.1 (0-0.2) k/uL Sodium 138 (137-145) mmol/L Potassium 4.7 (3.5-5.1) mmol/L Chloride 101 (98-107) mmol/L Carbon Dioxide 30 (22-30) mmol/L Anion Gap 7 mmol/L BUN 19 H (7-17) mg/dL Creatinine 0.68 (0.52-1.04) mg/dL Est GFR (CKD-EPI)AfAm >90 (>60 ml/min/1.73 sqM) Est GFR (CKD-EPI)NonAf >90 (>60 ml/min/1.73 sqM) Glucose 113 H (74-99) mg/dL Plasma Lactic Acid James 0.6 L (0.7-2.0) mmol/L Calcium 9.2 (8.4-10.2) mg/dL Total Bilirubin 0.6 (0.2-1.3) mg/dL AST 25 (14-36) U/L ALT 24 (4-34) U/L Alkaline Phosphatase 67 (38-126) U/L Total Protein 7.3 (6.3-8.2) g/dL Albumin 4.4 (3.5-5.0) g/dL Disposition <Tamela Herring - Last Filed: 10/04/24 10:12> Is patient prescribed a controlled substance at d/c from ED?: No Time of Disposition: 14:20 <Dano Kohli - Last Filed: 10/04/24 14:57> Clinical Impression: Periorbital cellulitis, Corneal abrasion, Conjunctivitis Disposition: HOME SELF-CARE Condition: Fair Instructions (If sedation given, give patient instructions): Corneal Abrasion (ED), Periorbital Cellulitis in Adults (ED), Conjunctivitis (ED) Additional Instructions: You have periorbital cellulitis, conjunctivitis, as well as a corneal abrasion at the 3 o'clock position of the left eye. Follow-up with ophthalmology. Continue with antibiotic eyedrops as well as oral antibiotics. Return if worsening symptoms. Can also follow-up with automatic dispenser mechanic. Can also follow-up with PCP. Follow-up recommended within the next 1 to 3 days. Prescriptions: Sulfamethox-Tmp 800-160Mg [Bactrim DS 800-160 mg] 1 tab PO Q12HR 7 Days #14 tab Cefdinir 300 mg PO Q12HR 7 Days #14 cap Ofloxacin 0.3% Ophth Soln [Ocuflox Ophth Soln] 1 - 2 drops BOTH EYES QID 10 Days #10 ml Referrals: Moises Mattson MD [Primary Care Provider] - 1-2 days Garland Riojas MD [STAFF PHYSICIAN] - 1-2 days
[2024-10-04 11:49] LABS: Basophils # (A) 0.1 k/uL (0-0.2); Basophils % (A) 1 %; Eosinophils # (A) 0.3 k/uL (0-0.7); Eosinophils % (A) 3 %; HCT 41.1 % (34.0-46.0); HGB 14.1 gm/dL (11.4-16.0); Lymphocytes # (A) 1.4 k/uL (1.0-4.8); Lymphocytes % (A) 15 %; MCH 30.7 pg (25.0-35.0); MCHC 34.3 g/dL (31.0-37.0); MCV 89.3 fL (80.0-100.0); Mean Platelet Volume 6.4; Monocytes # (A) 0.4 k/uL (0-1.0); Monocytes % (A) 5 %; Neutrophils # (A) 6.8 k/uL (1.3-7.7); Neutrophils % (A) 75 %; Platelet Count 202 k/uL (150-450); RDW 13.4 % (11.5-15.5); WBC 9.1 k/uL (3.8-10.6)
[2024-10-04] MEDS: KETOROLAC 15 MG/ML 1 ML VIAL IVP STA (12:17)
[2024-10-04] MEDS: SODIUM CHLORIDE 0.9% 1,000 ML IV STA (12:17)
[2024-10-04] MEDS: DEXAMETHASONE SOD PHOSPHATE 4 MG/ML 1 ML VIAL IVP STA (12:18)
[2024-10-04] MEDS: TETRACAINE 0.5% OPHTH (PF) DROPS 4 ML BTL BOTH EYES STA (12:18)
[2024-10-04] MEDS: FLUORESCEIN STRIPS 1 MG STRIP BOTH EYES ONE (12:19)
[2024-10-04 12:22] LABS: ALT 24 U/L (4-34); AST 25 U/L (14-36); African American GFR (CKD) >90 (>60 ml/min/1.73 sqM); Albumin 4.4 g/dL (3.5-5.0); Alkaline Phosphatase 67 U/L (38-126); Anion Gap 7 mmol/L; Blood Urea Nitrogen 19 mg/dL (7-17); Calcium 9.2 mg/dL (8.4-10.2); Carbon Dioxide 30 mmol/L (22-30); Chloride 101 mmol/L (98-107); Glucose 113 mg/dL (74-99); Non-African American GFR(CKD) >90 (>60 ml/min/1.73 sqM); Potassium 4.7 mmol/L (3.5-5.1); Sodium 138 mmol/L (137-145); Total Bilirubin 0.6 mg/dL (0.2-1.3); Total Protein 7.3 g/dL (6.3-8.2)
--- NOTE | 2024-10-04 13:53 | CT ---
EXAMINATION TYPE: CT orbits w con DATE OF EXAM: 10/04/2024 1:42 PM COMPARISON: 06/11/2014. CLINICAL INDICATION: Female, 59 years old with history of eval for orbital vs periorbital cellulitis; [facility], Eval for orbital vs periorbital cellulitis. Pain swelling TECHNIQUE: Orbits: Axial CT with coronal and sagittal reformats through the orbits. No IV or oral contrast was u tilized. CT DLP: 306.9 mGycm, Automated exposure control for dose reduction was used. Findings: Orbital Contents: * Globes: Normal. * Preseptal Tissues: Mild phlegmonous change bilaterally. No organizing fluid collections.. * Intraconal Structures: Normal. * Extraconal Structures and Lacrimal Glands: Normal. * Orbital Concord: Normal. Sella Turcica and Cavernous Sinuses: The sella turcica and cavernous sinus regions are intact and sym metric. Visualized Brain Parenchyma: Normal. Paranasal Sinuses and Surrounding Structures: Moderate paranasal sinus disease. Musculoskeletal: No e vidence of fracture. Other: Soft tissues are within normal limits. IMPRESSION: No evidence for periorbital cellulitis. Symmetric edema on the preseptal soft tissues noted bilateral ly suggesting preseptal cellulitis. [facility], , 10/04/2024 1:51 PM
[2024-10-04] MEDS: SULFAMETHOX-TMP 800-160MG 1 EACH TAB PO STA (15:40)
[2024-10-04] MEDS: OFLOXACIN 0.3% OPHTH DROPS 5 ML BOTTLE BOTH EYES SCH (15:41)
[2024-10-04] MEDS: CEFDINIR 300 MG CAP PO STA (15:41)
[2024-10-04 16:08] VITALS: BP 117/75; PULSE 74; RESP 16
== END 2024-10-04 16:07 | disposition home or self-care (01) ==
LOC: EC 10:00
DX: S05.02XA Injury of conjunctiva and corneal abrasion without foreign body, left eye, initial encounter (principal); S05.01XA Injury of conjunctiva and corneal abrasion without foreign body, right eye, initial encounter; L03.213 Periorbital cellulitis; H10.9 Unspecified conjunctivitis; Z88.0 Allergy status to penicillin; Z88.1 Allergy status to other antibiotic agents; X58.XXXA Exposure to other specified factors, initial encounter
CPT/HCPCS: 36415; 80053; 83605; 85025; 70481; 99284; 96374; 96375; 96361 ×3; J1100; J1885; Q9967

== ENCOUNTER → 2024-12-29 | Outpatient (CLI) | payer BC ==
--- NOTE | 2024-12-29 10:03 | MM ---
Reason for Exam: Screening (asymptomatic). Last mammogram was performed 1 year(s) and 3 month(s) ago. Patient History: Menarche at age 14. First Full-Term at age 27. Postmenopausal. Paternal grandmother had breast cancer. Risk Values: Magaly 5 year model risk: 1.5%. NCI Lifetime model risk: 8.5%. Prior Study Comparison: 06/08/2021 Bilateral Screening Mammogram, [facility]. 08/10/2022 Bilateral MG 3D screening mammo w/cad, [facility]. 09/25/2023 Bilateral MG 3D screening mammo w/cad, [facility]. Tissue Density: The breasts are heterogeneously dense, which may obscure small masses. Findings: Analyzed By CAD. There is no suspicious group of microcalcifications or new suspicious mass in either breast. Benign-appearing calcifications. Overall Assessment: Benign, BI-RAD 2 Management: Screening Mammogram of both breasts in 1 year. . Patient should continue monthly self-breast exams. A clinical breast exam by your physician is recommended on an annual basis. This exam should not preclude additional follow-up of suspicious palpable abnormalities. Note on Magaly scores and lifetime risk: 1. A Magaly score greater than 3% is considered moderate risk. If this is the case, consider specialist referral to assess eligibility for a risk reducing agent. 2. If overall lifetime risk for the development of breast cancer is 20% or higher, the patient may qualify for future screening with alternating mammogram and breast MRI. [facility], , 12/29/2024 10:00 AM. Electronically signed and approved by: Moises Nava M.D. Radiologis
== END | disposition home or self-care (01) ==
LOC: RADMAMWWP 09:10
PROVIDERS: ATTEND Internal Medicine Geriatric Medicine
DX: Z12.31 Encounter for screening mammogram for malignant neoplasm of breast (principal); R92.333 Mammographic heterogeneous density, bilateral breasts; R92.1 Mammographic calcification found on diagnostic imaging of breast; Z78.0 Asymptomatic menopausal state; Z80.3 Family history of malignant neoplasm of breast
CPT/HCPCS: 77063; 77067